=== PATIENT | male | born 1955 | race Caucasian/White ===

== ENCOUNTER 2017-07-21 22:23 | Inpatient (IN) | END 2017-07-23 16:14 | disposition home or self-care (01) | DRG 69 ==

== ENCOUNTER 2019-04-06 05:54 | Day surgery (SDC) | payer OTHER ==
[2019-04-06] VITALS (11 sets, daily range): BP systolic 71–178; BP diastolic 66–79; PULSE 50–60; RESP 11–19; Ht 165.1 cm; Wt 76.6 kg
[~2019-04-06] VITALS: Ht 165.1 cm; Wt 76.6 kg
[~2019-04-06 05:54] MED LIST: ACET650T5 PO; AMLO5TAB4 PO; ASPI-817 PO; ASPI-903 PO; CALC-74 PO; CARV25TA79 PO; CARV6.25 PO; CLOP75TA19 PO; CLOP75TA28 PO; CYCLOPENTOLATE 2% 2 ML OPH RIGHT EYE SCH; EZET1TAB10 PO; EZET1TAB70 PO; ISOS30TA67 PO; MONT10TA24 PO; MOXIFLOXACIN 0.5% 3 ML OPH RIGHT EYE ONE; NEPAFENAC 0.1% 3 ML OPH RIGHT EYE SCH; NIAC500T22 PO; NIT4 SL; OMEG100024 PO; PHENYLephrine 10% 5 ML OPH RIGHT EYE SCH; QUIN20TA PO; RANI-535 PO; RANO500T2 PO; TOPI100T PO
[2019-04-06] MEDS ORDERED: MOXIFLOXACIN 0.5% 3 ML OPH RIGHT EYE ONE ×2 (06:00→06:30)
[2019-04-06] MEDS ORDERED: LIDOCAINE 2% (SDV) 5 ML INJ ONE ×3 (06:31→08:38)
[2019-04-06] MEDS ORDERED: LIDOCAINE 1% (MPF) 5 ML VIAL ONE ×2 (06:36→08:36)
[2019-04-06] MEDS ORDERED: CARBACHOL 0.01% 1.5 ML OPH INJ ONE (06:36)
[2019-04-06] MEDS ORDERED: EPINEPHrine 1 MG INJ ONE ×2 (06:37→08:36)
[2019-04-06] MEDS ORDERED: TIMOLOL MALEATE/PF 0.5% OCCUDOSE (0.3 ML) ONE ×2 (06:37→08:36)
[2019-04-06] MEDS ORDERED: NA BICARB 50 MEQ/50 ML VIAL ONE ×2 (06:37→08:37)
[2019-04-06] MEDS ORDERED: LIDOCAINE 1% (MPF) 5 ML VIAL INJ ONE (07:00)
[2019-04-06] MEDS ORDERED: FENTAnyl 50 MCG/ML VIAL ONE (07:25)
[2019-04-06] MEDS ORDERED: PROPOFOL 20 ML ONE (07:25)
[2019-04-06] MEDS ORDERED: MIDAZOLAM 1 MG/ML 2 ML INJ ONE (07:25)
[2019-04-06] MEDS ORDERED: TIMOLOL 0.5% 5 ML OPH RIGHT EYE ONE (07:54)
[2019-04-06] MEDS ORDERED: EPHEDrine 25 MG/5 ML SYG ONE (08:15)
[2019-04-06] MEDS ORDERED: BUPIVACAINE 0.75% (MPF) 10 ML INJ ONE (08:36)
[2019-04-06] MEDS ORDERED: POLYMYXIN/BACITRACIN 1L IRRIG ONE (09:38)
[2019-04-06] MEDS ORDERED: BUPIVACAINE 0.5% (SDV) 30 ML INJ ONE (09:38)
== END 2019-04-06 09:52 | disposition home or self-care (01) ==
LOC: MERGE 05:54 → SDS 05:54
PROVIDERS: ATTEND Ophthalmology
DX: H25.11 Age-related nuclear cataract, right eye (principal); I10 Essential (primary) hypertension; I25.10 Atherosclerotic heart disease of native coronary artery without angina pectoris; E78.5 Hyperlipidemia, unspecified
CPT/HCPCS: 66984; 71045; J0171; J2250; J3010; V2632; Z7512; Z7610